=== PATIENT | female | born 1945 | race Caucasian/White ===

== ENCOUNTER 2018-03-09 15:37 | Inpatient (IN) | payer MEDICARE ==
[2018-03-08 20:00] VITALS: BP 121/57
[~2018-03-09] VITALS: Ht 167.6 cm; Wt 66.2 kg
[2018-03-09 16:00] VITALS: BP 107/67
[2018-03-09] MEDS ORDERED: Pantoprazole Inj IV ONE (16:15)
[2018-03-09 16:26] LABS: HEMATOCRIT 40.7 % (37.0-47.0); HEMOGLOBIN 14.3 G/DL (12.0-16.0); MEAN CORPUSCULAR VOLUME 86 FL (80-99); PLATELET COUNT 204 K/UL (150-450); RED BLOOD COUNT 4.76 M/UL (4.20-5.40); RED CELL DISTRIBUTION WIDTH 12.3 % (11.6-14.8); WHITE BLOOD COUNT 13.4 K/UL (4.8-10.8)
[2018-03-09] MEDS ORDERED: Isovue-300 100ml vial INJ PRN (16:30)
[2018-03-09 16:37] LABS: APPEARANCE,URINE CLEAR; BILIRUBIN, URINE NEGATIVE (NEGATIVE); COLOR,URINE PALE YELLOW; GLUCOSE, URINE (UA) NEGATIVE (NEGATIVE); KETONES,URINE 2+ (NEGATIVE); LEUKOCYTE ESTERASE ,URINE 3+ (NEGATIVE); NITRITE,URINE NEGATIVE (NEGATIVE); PH,URINE 7 (4.5-8.0); PROTEIN,URINE 1+ (NEGATIVE); UROBILINOGEN,URINE NORMAL MG/DL (0.0-1.0)
[2018-03-09 16:39] LABS: ANION GAP 3 mmol/L (5-15); BLOOD UREA NITROGEN 17 mg/dL (7-18); CALCIUM 8.9 MG/DL (8.5-10.1); CARBON DIOXIDE 27 MMOL/L (21-32); CHLORIDE 97 MMOL/L (98-107); CREATININE 0.7 MG/DL (0.55-1.30); POTASSIUM 3.6 MMOL/L (3.5-5.1); SODIUM 127 MMOL/L (136-145)
[2018-03-09 16:44] LABS: ALANINE AMINOTRANSFERASE 69 U/L (12-78); ALBUMIN/GLOBULIN RATIO 0.8 (1.0-2.7); ALKALINE PHOSPHATASE 80 U/L (46-116); ASPARTATE AMINO TRANSFERASE 30 U/L (15-37); BILIRUBIN,TOTAL 0.7 MG/DL (0.2-1.0)
[2018-03-09] MEDS ORDERED: Sodium Chloride 500ML 500 ML IV ONE (16:45)
[2018-03-09] MEDS ORDERED: Morphine Sulfate 4mg/ml Inj IVP ONE (17:00)
[2018-03-09] MEDS ORDERED: D5 1/2NS w/KCl 20mEq 1,000 ML IV SCH (17:15)
[2018-03-09] MEDS ORDERED: DECADRON2 MG ORAL ×2 (17:54)
--- NOTE | 2018-03-09 17:57 | Diagnostic Imaging Report ---
EXAM: CT Abdomen and Pelvis With Intravenous Contrast CLINICAL HISTORY: PAIN TECHNIQUE: Axial computed tomography images of the abdomen and pelvis with intravenous contrast. CTDI is 0.15 + 15.0 3 + 15.23 mGy and DLP is 1578 mGy-cm. One or more of the following dose reduction techniques were used: automated exposure control, adjustment of the mA and/or kV according to patient size, use of iterative reconstruction technique. COMPARISON: No relevant prior studies available. FINDINGS: Lung bases: Unremarkable. ABDOMEN: Liver: Mild fatty liver. Gallbladder and bile ducts: Cholelithiasis and pericholecystic fluid. Pancreas: No focal lesion. Peripancreatic edema Spleen: Unremarkable. Adrenals: Unremarkable. Kidneys and ureters: Possibly complex right renal cyst measuring 16 mm. Too small to characterize low attenuation focus in the left kidney. Stomach and bowel: No domenica mural thickening. Nonobstructive bowel gas pattern. PELVIS: Appendix: Appendix not identified. Bladder: Unremarkable. Reproductive: Hysterectomy. ABDOMEN and PELVIS: Intraperitoneal space: Trace amounts of fluid in the peritoneal cavity. Bones/joints: No acute fracture. Soft tissues: Edema in the upper abdomen. Vasculature: Unremarkable. No abdominal aortic aneurysm. Lymph nodes: No enlarged lymph nodes. IMPRESSION: 1. Edema in the upper abdomen. Could be from pancreatitis. Correlate with amylase or lipase values. 2. Cholelithiasis and pericholecystic fluid.
[2018-03-09] MEDS ORDERED: VITAMIN B COMP1 EAC5 PO (17:59)
[2018-03-09] MEDS ORDERED: VITAMIN C250 MG ORAL (17:59)
[2018-03-09] MEDS ORDERED: VITAMIN D1000 UNI1 ORAL (17:59)
[2018-03-09] MEDS ORDERED: MAGNESIUM OXID250 MG PO (17:59)
[2018-03-09] MEDS ORDERED: TURMERIC1 GM MC (17:59)
[2018-03-09] MEDS ORDERED: CRANBERRY200 M1 PO (17:59)
[2018-03-09 18:00] VITALS: BP 110/69
--- NOTE | 2018-03-09 18:01 | Emergency Room Report ---
History of Present Illness General Chief Complaint: Abdominal Pain Source: Patient Present Illness HPI Patient is a 72-year-old female who presented after increased the left upper abdominal pain. Patient reports having pain for approximately 2 days. She reported this having some worsening. She reports having prior history of gallstones. She denies any fever or vomiting. The patient prior history of small cell cancer. The patient was also noted to have a prior history of brain tumor. She takes dexamethasone 2 mg. The patient is currently scheduled to have evaluation at [facility] but has not previously been seen.The patient the neurosurgeon at [facility] is Dr. Fidel Miller. The patient's oncologist is Dr. Caraballo. Allergies: Coded Allergies: No Known Allergies (Unverified , 03/09/18) Patient History Past Medical History: see triage record Reviewed Nursing Documentation: PMH: Agreed; PSxH: Agreed Nursing Documentation-PMH Past Medical History: No History, Except For Hx Cancer: Yes - Brain, lung Review of Systems All Other Systems: negative except mentioned in HPI Physical Exam Vital Signs Date Time Temp Pulse Resp B/P (MAP) Pulse Ox O2 Delivery O2 Flow Rate FiO2 03/09/18 15:53 98.5 91 16 107/67 95 Room Air 98.4 Sp02 EP Interpretation: reviewed, normal General Appearance: normal inspection, well appearing, no apparent distress, alert, GCS 15, Chronically Ill Head: atraumatic ENT: normal ENT inspection, hearing grossly normal, normal voice Neck: normal inspection, full range of motion, supple, no bony tend Respiratory: normal inspection, lungs clear, normal breath sounds, no respiratory distress, no retraction, no wheezing Cardiovascular #1: regular rate, rhythm, no edema Gastrointestinal: non tender, soft, no guarding, no hernia, tenderness - left upper quadrant Genitourinary: no CVA tenderness Musculoskeletal: normal inspection, back normal, normal range of motion Neurologic: normal inspection, alert, responsive, speech normal, other - ataxic gait, oriented Psychiatric: normal inspection, judgement/insight normal, mood/affect normal Skin: normal inspection, normal color, no rash Medical Decision Making Diagnostic Impression: Primary Impression: Pancreatitis Additional Impressions: Brain tumor Small cell carcinoma of lung ER Course Patient presented for abdominal pain. Differential diagnoses included ischemic bowel, pancreatitis, obstruction , appendicitis, perforated viscus, abdominal aortic aneurysm, inferior myocardial infarction, viral gastroenteritis. Because of complexity of patient's case laboratory testing and imaging studies were ordered. The patient was discussed with Dr. Caraballo the who apparently had not seen the patient yet but had a scheduled appointment for Sunday. The laboratory study showed evidence of pancreatitis with lipase greater than 1700. The patient was given pain medications as well as IV acid blockers. The patient reportedly has prior brain tumor and I discussed the patient with the neurosurgical resident from [facility] states the patient has a 22 x 17 cm deep right parietal tumor. The patient was discussed with Dr. Caraballo from [facility] who recommended medical management at this facility. The patient was discussed with Dr. Lynch for surgical consult. The patient was discussed with Dr. Pimentel for Dr. Gonzales for panel physician. Labs Test 03/09/18 16:10 03/09/18 16:30 White Blood Count 13.4 K/UL (4.8-10.8) Red Blood Count 4.76 M/UL (4.20-5.40) Hemoglobin 14.3 G/DL (12.0-16.0) Hematocrit 40.7 % (37.0-47.0) Mean Corpuscular Volume 86 FL (80-99) Mean Corpuscular Hemoglobin 30.0 PG (27.0-31.0) Mean Corpuscular Hemoglobin Concent 35.0 G/DL (32.0-36.0) Red Cell Distribution Width 12.3 % (11.6-14.8) Platelet Count 204 K/UL (150-450) Mean Platelet Volume 6.1 FL (6.5-10.1) Neutrophils (%) (Auto) % (45.0-75.0) Lymphocytes (%) (Auto) % (20.0-45.0) Monocytes (%) (Auto) % (1.0-10.0) Eosinophils (%) (Auto) % (0.0-3.0) Basophils (%) (Auto) % (0.0-2.0) Differential Total Cells Counted 100 Neutrophils % (Manual) 81 % (45-75) Lymphocytes % (Manual) 9 % (20-45) Monocytes % (Manual) 7 % (1-10) Eosinophils % (Manual) 0 % (0-3) Basophils % (Manual) 0 % (0-2) Band Neutrophils 3 % (0-8) Platelet Estimate Adequate Platelet Morphology Normal Red Blood Cell Morphology Normal Prothrombin Time 10.7 SEC (9.30-11.50) Prothromb Time International Ratio 1.0 (0.9-1.1) Activated Partial Thromboplast Time 26 SEC (23-33) Sodium Level 127 MMOL/L (136-145) Potassium Level 3.6 MMOL/L (3.5-5.1) Chloride Level 97 MMOL/L (98-107) Carbon Dioxide Level 27 MMOL/L (21-32) Anion Gap 3 mmol/L (5-15) Blood Urea Nitrogen 17 mg/dL (7-18) Creatinine 0.7 MG/DL (0.55-1.30) Estimat Glomerular Filtration Rate mL/min (>60) Glucose Level 110 MG/DL (74-106) Calcium Level 8.9 MG/DL (8.5-10.1) Total Bilirubin 0.7 MG/DL (0.2-1.0) Aspartate Amino Transf (AST/SGOT) 30 U/L (15-37) Alanine Aminotransferase (ALT/SGPT) 69 U/L (12-78) Alkaline Phosphatase 80 U/L (46-116) Troponin I 0.000 ng/mL (0.000-0.056) Total Protein 6.7 G/DL (6.4-8.2) Albumin 3.0 G/DL (3.4-5.0) Globulin 3.7 g/dL Albumin/Globulin Ratio 0.8 (1.0-2.7) Lipase 1716 U/L (73-393) Urine Color Pale yellow Urine Appearance Clear Urine pH 7 (4.5-8.0) Urine Specific [place] 1.010 (1.005-1.035) Urine Protein 1+ (NEGATIVE) Urine Glucose (UA) Negative (NEGATIVE) Urine Ketones 2+ (NEGATIVE) Urine Occult Blood Negative (NEGATIVE) Urine Nitrite Negative (NEGATIVE) Urine Bilirubin Negative (NEGATIVE) Urine Urobilinogen Normal MG/DL (0.0-1.0) Urine Leukocyte Esterase 3+ (NEGATIVE) Urine RBC 0-2 /HPF (0 - 2) Urine WBC 5-10 /HPF (0 - 2) Urine Squamous Epithelial Cells Few /LPF (NONE/OCC) Urine Bacteria Few /HPF (NONE) EKG Diagnostic Results Rate: normal Rhythm: NSR ST Segments: no acute changes Last Vital Signs Date Time Temp Pulse Resp B/P (MAP) Pulse Ox O2 Delivery O2 Flow Rate FiO2 03/09/18 17:53 98.4 03/09/18 16:00 91 16 107/67 95 Room Air Status: unchanged Disposition: ADMITTED INPATIENT Condition: Serious Referrals: NOT CHOSEN IPA/,REFERRING (PCP) Sanju Olea MD Mar 09, 2018 18:01
[2018-03-09] MEDS: D5NS 1,000 ML IV SCH (22:09)
[2018-03-09] MEDS: Morphine Sulfate 4mg/ml Inj IVP PRN (22:29)
[2018-03-10] VITALS (7 sets, daily range): BP systolic 104–134; BP diastolic 53–67
[2018-03-10] MEDS ORDERED: Acetaminophen 650 MG SUPP RECTAL PRN (00:45)
[2018-03-10] MEDS: Morphine Sulfate 4mg/ml Inj IVP PRN ×3 (01:52→22:26)
[2018-03-10] MEDS: D5NS 1,000 ML IV SCH ×4 (04:32→21:00)
[2018-03-10 07:11] LABS: HEMOGLOBIN 12.9 G/DL (12.0-16.0); MEAN CORPUSCULAR VOLUME 89 FL (80-99); PLATELET COUNT 184 K/UL (150-450); RED BLOOD COUNT 4.41 M/UL (4.20-5.40); RED CELL DISTRIBUTION WIDTH 12.6 % (11.6-14.8); WHITE BLOOD COUNT 13.3 K/UL (4.8-10.8)
[2018-03-10 07:31] LABS: ALANINE AMINOTRANSFERASE 51 U/L (12-78); ALBUMIN 2.5 G/DL (3.4-5.0); ALBUMIN/GLOBULIN RATIO 0.7 (1.0-2.7); ALKALINE PHOSPHATASE 63 U/L (46-116); ANION GAP 3 mmol/L (5-15); ASPARTATE AMINO TRANSFERASE 23 U/L (15-37); BILIRUBIN,TOTAL 0.5 MG/DL (0.2-1.0); BLOOD UREA NITROGEN 11 mg/dL (7-18); CALCIUM 8.1 MG/DL (8.5-10.1); CARBON DIOXIDE 28 MMOL/L (21-32); CHLORIDE 102 MMOL/L (98-107); CREATININE 0.7 MG/DL (0.55-1.30); POTASSIUM 3.9 MMOL/L (3.5-5.1); SODIUM 133 MMOL/L (136-145)
[2018-03-10] MEDS: Morphine Sulfate 2mg/ml Inj IVP PRN (09:18)
--- NOTE | 2018-03-10 14:05 | Consultation ---
History of Present Illness General Date patient seen: Mar 10, 2018 Chief Complaint: Abdominal Pain Reason for Consultation: gallstone pancreatitis Present Illness HPI 72 year old female with history of brain tumor and lung cancer presented with abdominal pain, nausea, and emesis. As per patient, she was in her normal state of health until 3 days ago when she developed upper abdominal pain after breakfast. Pain described as cramping upper abdominal 10/10 pain with radiation to back. associated nausea and episodes of non blood emesis. As pain did not improve she came to ED for evaluation. After work up was noted to have pancreatitis likely secondary to cholelithiasis. Patient states she has brain tumor in past that was evaluated to [facility]. Has small cell cancer which is scheduled to be evaluated to [facility] as well. surgery called to evaluate for pancreatitis. patient seen, chart reviewed, patient examined. Allergies: Coded Allergies: No Known Allergies (Unverified , 03/09/18) Medication History Scheduled Ascorbic Acid* (Vitamin C*), 250 MG ORAL DAILY, (Reported) Cholecalciferol (Vitamin D3)* (Vitamin D*), Unknown Dose ORAL DAILY, (Reported) Cranberry Extract (Cranberry), Unknown Dose PO DAILY, (Reported) Dexamethasone (Dexamethasone), 2 MG ORAL BID, (Reported) Magnesium Oxide (Magnesium Oxide), Unknown Dose PO DAILY, (Reported) Turmeric (Turmeric), Unknown Dose MC DAILY, (Reported) Vitamin B Complex (Vitamin B Complex), 1 EACH PO DAILY, (Reported) Patient History History Provided By: Patient, Medical Record, PMD Healthcare decision maker FAHAD HOLT Resuscitation status Do Not Resuscitate Advanced Directive on File REQUESTED COPY FROM FAHAD HOLT, PATIENT Past Medical/Surgical History Past Medical/Surgical History: (1) Pancreatitis (2) Brain tumor (3) Small cell carcinoma of lung Review of Systems All Other Systems: negative except mentioned in HPI Physical Exam General Appearance: no apparent distress Lines, tubes and drains: peripheral HEENT: mucous membranes moist, PERRL Neck: normal inspection Respiratory/Chest: no respiratory distress, no accessory muscle use Cardiovascular/Chest: normal rate Abdomen: soft, no organomegaly, no mass, tender - epigastric region without acute abdomen Extremities: normal inspection Skin Exam: normal pigmentation Neurologic: washer meat II-XII grossly normal Last 24 Hour Vital Signs Date Time Temp Pulse Resp B/P (MAP) Pulse Ox O2 Delivery O2 Flow Rate FiO2 7/1/18 12:00 97.4 83 20 125/63 97 97.4 03/10/18 08:00 97.8 73 20 115/58 98 97.8 03/10/18 08:00 Room Air 03/10/18 04:00 99.0 80 19 104/59 94 Room Air 99.0 03/10/18 01:00 99.5 99.5 03/10/18 00:00 100.8 84 20 116/64 96 Room Air 100.8 03/09/18 22:29 98.0 03/09/18 19:23 98.0 86 16 110/69 95 Room Air 98.0 03/09/18 18:00 98.0 86 16 110/69 95 Room Air 98.0 03/09/18 17:53 98.4 03/09/18 17:07 98.4 03/09/18 16:00 98.4 91 16 107/67 95 Room Air 98.4 03/09/18 15:53 98.5 91 16 107/67 95 Room Air 98.4 Intake and Output 03/09/18 03/10/18 19:00 07:00 Intake Total 500 ml 1200 ml Output Total 90 ml Balance 410 ml 1200 ml Intake IV Total 500 ml 1200 ml Output Urine Total 90 ml # Voids 1 3 # Bowel Movements 28 Laboratory Tests Test 03/09/18 16:10 03/09/18 16:30 03/10/18 05:00 White Blood Count 13.4 K/UL (4.8-10.8) H 13.3 K/UL (4.8-10.8) H Red Blood Count 4.76 M/UL (4.20-5.40) 4.41 M/UL (4.20-5.40) Hemoglobin 14.3 G/DL (12.0-16.0) 12.9 G/DL (12.0-16.0) Hematocrit 40.7 % (37.0-47.0) 39.0 % (37.0-47.0) Mean Corpuscular Volume 86 FL (80-99) 89 FL (80-99) Mean Corpuscular Hemoglobin 30.0 PG (27.0-31.0) 29.2 PG (27.0-31.0) Mean Corpuscular Hemoglobin Concent 35.0 G/DL (32.0-36.0) 33.0 G/DL (32.0-36.0) Red Cell Distribution Width 12.3 % (11.6-14.8) 12.6 % (11.6-14.8) Platelet Count 204 K/UL (150-450) 184 K/UL (150-450) Mean Platelet Volume 6.1 FL (6.5-10.1) L 5.4 FL (6.5-10.1) L Neutrophils (%) (Auto) % (45.0-75.0) % (45.0-75.0) Lymphocytes (%) (Auto) % (20.0-45.0) % (20.0-45.0) Monocytes (%) (Auto) % (1.0-10.0) % (1.0-10.0) Eosinophils (%) (Auto) % (0.0-3.0) % (0.0-3.0) Basophils (%) (Auto) % (0.0-2.0) % (0.0-2.0) Differential Total Cells Counted 100 100 Neutrophils % (Manual) 81 % (45-75) H 85 % (45-75) H Lymphocytes % (Manual) 9 % (20-45) L 10 % (20-45) L Monocytes % (Manual) 7 % (1-10) 5 % (1-10) Eosinophils % (Manual) 0 % (0-3) 0 % (0-3) Basophils % (Manual) 0 % (0-2) 0 % (0-2) Band Neutrophils 3 % (0-8) 0 % (0-8) Platelet Estimate Adequate Adequate Platelet Morphology Normal Normal Red Blood Cell Morphology Normal Normal Prothrombin Time 10.7 SEC (9.30-11.50) Prothromb Time International Ratio 1.0 (0.9-1.1) Activated Partial Thromboplast Time 26 SEC (23-33) Sodium Level 127 MMOL/L (136-145) L 133 MMOL/L (136-145) L Potassium Level 3.6 MMOL/L (3.5-5.1) 3.9 MMOL/L (3.5-5.1) Chloride Level 97 MMOL/L (98-107) L 102 MMOL/L (98-107) Carbon Dioxide Level 27 MMOL/L (21-32) 28 MMOL/L (21-32) Anion Gap 3 mmol/L (5-15) L 3 mmol/L (5-15) L Blood Urea Nitrogen 17 mg/dL (7-18) 11 mg/dL (7-18) Creatinine 0.7 MG/DL (0.55-1.30) 0.7 MG/DL (0.55-1.30) Estimat Glomerular Filtration Rate mL/min (>60) mL/min (>60) Glucose Level 110 MG/DL (74-106) H 128 MG/DL (74-106) H Calcium Level 8.9 MG/DL (8.5-10.1) 8.1 MG/DL (8.5-10.1) L Total Bilirubin 0.7 MG/DL (0.2-1.0) 0.5 MG/DL (0.2-1.0) Aspartate Amino Transf (AST/SGOT) 30 U/L (15-37) 23 U/L (15-37) Alanine Aminotransferase (ALT/SGPT) 69 U/L (12-78) 51 U/L (12-78) Alkaline Phosphatase 80 U/L (46-116) 63 U/L (46-116) Troponin I 0.000 ng/mL (0.000-0.056) Total Protein 6.7 G/DL (6.4-8.2) 5.9 G/DL (6.4-8.2) L Albumin 3.0 G/DL (3.4-5.0) L 2.5 G/DL (3.4-5.0) L Globulin 3.7 g/dL 3.4 g/dL Albumin/Globulin Ratio 0.8 (1.0-2.7) L 0.7 (1.0-2.7) L Lipase 1716 U/L (73-393) H Urine Color Pale yellow Urine Appearance Clear Urine pH 7 (4.5-8.0) Urine Specific [place] 1.010 (1.005-1.035) Urine Protein 1+ (NEGATIVE) H Urine Glucose (UA) Negative (NEGATIVE) Urine Ketones 2+ (NEGATIVE) H Urine Occult Blood Negative (NEGATIVE) Urine Nitrite Negative (NEGATIVE) Urine Bilirubin Negative (NEGATIVE) Urine Urobilinogen Normal MG/DL (0.0-1.0) Urine Leukocyte Esterase 3+ (NEGATIVE) H Urine RBC 0-2 /HPF (0 - 2) Urine WBC 5-10 /HPF (0 - 2) H Urine Squamous Epithelial Cells Few /LPF (NONE/OCC) Urine Bacteria Few /HPF (NONE) Height (Feet): 5 Height (Inches): 6.00 Weight (Pounds): 146 Medications Current Medications Medications (Trade) Dose Ordered Sig/Gilma Route PRN Reason Start Time Stop Time Status Last Admin Dose Admin Acetaminophen (Tylenol) 650 mg Q4H PRN RECTAL TEMPERATURE GREATER THAN 100 03/10/18 00:45 04/09/18 00:44 Dextrose/Sodium Chloride 1,000 ml @ 150 mls/hr Q6H40M IV 03/09/18 21:30 04/08/18 21:29 03/10/18 12:19 Iopamidol (Isovue-300 100ml) 100 ml NOW PRN INJ Radiology Procedure 03/09/18 16:30 Morphine Sulfate (Morphine Sulfate) 2 mg Q3H PRN IVP moderate pain 03/09/18 21:13 03/16/18 21:12 03/10/18 09:18 Morphine Sulfate (Morphine Sulfate) 4 mg Q3H PRN IVP Severe Pain (Pain Scale 7-10) 03/09/18 21:13 03/16/18 21:12 03/10/18 13:26 Ondansetron HCl (Zofran) 4 mg Q4H PRN IVP Nausea & Vomiting 03/09/18 21:12 04/08/18 21:11 Assessment/Plan Problem List: (1) Pancreatitis Assessment & Plan: 72F with likely gallstone pancreatitis. afebrile, HD stable , leukocytosis 13k, lipase >1000. exam as above. Ct as noted. -NPO -IV fluids -trend labs -conservative medical management of pancreatitis. -lipid panel -meds reviewed -patient states she wants transfer to [facility] soon. thank you for this consultation. will follow with recs. ICD Codes: K85.90 - Acute pancreatitis without necrosis or infection, unspecified SNOMED: [id number] Qualifiers: Qualified Codes: K85.10 - Biliary acute pancreatitis without necrosis or infection Status: stable CrisLeonidas Mar 10, 2018 14:05
[2018-03-10] MEDS ORDERED: D5NS 1000ml IV ONE (16:34)
--- NOTE | 2018-03-10 17:42 | Cardiology Report ---
APPROVED REPORT EKG Measurement Heart [id number] Normal sinus rhythm Biatrial enlargement Early repolarization Nonspecific ST abnormality Abnormal ECG
--- NOTE | 2018-03-10 21:15 | Consultation ---
DATE OF CONSULTATION: 03/10/2018 HEMATOLOGY/ONCOLOGY CONSULTATION CONSULTING PHYSICIAN: Hawk Justice M.D. REQUESTING PHYSICIAN: Darren Varela M.D. and Eligio Palma M.D. REASON FOR CONSULTATION: Evaluation of lung cancer. IDENTIFICATION DATA: Dear Dr. Varela and Dr. Palma. The patient is a pleasant 72-year-old female with past medical history, which is significant for lung cancer diagnosed approximately four years ago. The patient had treatment with chemotherapy as well as radiation at that time. She was actually on hospice and therefore graduated gradually from hospice. She at this time presents with recurrence of lung cancer, stage IV to the brain. She reports pain for the past several days. She reports the pain has been worsening. She has a history of prior gallstones. Denies any fevers or chills. History of prior small cell lung cancer. Neurosurgeon is Dr. Fidel Miller. Oncologist is Dr. Caraballo. The patient at this time to be started on treatment in the near future. PAST MEDICAL HISTORY: Lung cancer, stage IV. PAST SURGICAL HISTORY: None reported. ALLERGIES: No known drug allergies. FAMILY HISTORY: Noncontributory. REVIEW OF SYSTEMS: CONSTITUTIONAL: No fevers, chills, or night sweats. SKIN: No rashes, bumps, or itching. HEENT: No headache, hearing, or vision changes. BREASTS: No lumps, pain, or discharge. PULMONARY: No cough, sputum, or shortness of breath. GASTROINTESTINAL: No nausea, vomiting, or diarrhea. GENITOURINARY: No dysuria, frequency, or urgency. MUSCULOSKELETAL: No muscle, joint swelling, or trauma. PHYSICAL EXAMINATION: VITAL SIGNS: Reviewed. GENERAL: No acute distress. PULMONARY: Decreased breath sounds. CARDIOVASCULAR: Regular rate. No S3 or S4. ABDOMEN: Soft, nontender, and nondistended. EXTREMITIES: 1+ edema. LABORATORY DATA: WBC 13.3, hemoglobin of 12.9, and platelet count 184,000. ASSESSMENT AND RECOMMENDATIONS: 1. Stage IV lung cancer with history of recurrence, status post treatment. The patient with adenocarcinoma and small cell lung cancer. The patient to be started on stereotactic radiation in addition to potential treatment in addition to potential chemotherapy. The patient has had carboplatin before. Continue to monitor at [facility]. 2. Leukocytosis secondary to severe infection or reactive process. The patient wants to be transferred to [facility] at this time. The patient with fever. Cultures pending. 3. Hypocalcemia, likely secondary to dehydration. Correct the patient's albumin. 4. Hypoalbuminemia, potentially secondary to decreased p.o. intake. 5. Left upper abdominal pain, potentially related to . The patient may need surgical consult. The patient with lipase greater than 1700, potentially pancreatitis, on IV pain medications. 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 7. Follow up at [facility] with neurosurgeon. I appreciate consultation. Hawk Justice M.D. DR: Paty JOB#: [id number] CC:
[2018-03-11 04:00] VITALS: BP 138/68
[2018-03-11] MEDS: D5NS 1,000 ML IV SCH ×3 (04:06→22:03)
[2018-03-11] MEDS: Morphine Sulfate 4mg/ml Inj IVP PRN ×3 (04:06→22:03)
--- NOTE | 2018-03-11 05:15 | History and Physical Report ---
DATE OF ADMISSION: 03/10/2018 CHIEF COMPLAINT: Abdominal pain. HISTORY OF PRESENT ILLNESS: This is a 72-year-old female with a past medical history of pancreatitis, brain tumor, and small cell carcinoma of the lung, who presents from home due to increasing left upper abdominal pain. The patient reports having the pain for approximately two days, which has started to worsen. She states she had nausea without any vomiting or fevers. She does have a history of prior gallstones as well. The patient presented to the emergency department for further evaluation and treatment. Upon arrival, the patient had a CT done, which showed edema in the upper abdomen, pancreatitis possible, but based on the patient's brain tumor in the past as well as small cell cancer, which was , the patient would like to transfer back to [facility]. The patient was seen by Surgery, who wanted to continue the patient on NPO, continue IV fluids, trend laboratories, conservative medical management of pancreatitis, and pain management until the patient can be transferred. The patient was seen and examined, resting comfortably, in no acute distress. Abdominal pain is improving. Diet was changed from NPO status to soft, advance as tolerated. She will be transferred to [facility] tomorrow. Until then, we will continue to monitor the patient and adjust medications according to clinical conditions and laboratory results. PAST MEDICAL HISTORY: Pancreatitis, brain tumor, and small cell carcinoma of the lung. ALLERGIES: No known drug allergies. SOCIAL HISTORY: Denies any drug, tobacco, or illicit drug abuse. REVIEW OF SYSTEMS: Negative except for pertinent positives listed above in the history of present illness. PHYSICAL EXAMINATION: GENERAL: Awake, alert, and in no apparent distress. HEENT: PERRLA. CARDIOVASCULAR: S1 and S2. Regular rate and rhythm. RESPIRATORY: Clear breath sounds bilaterally. No wheezing, rhonchi, or rales. ABDOMEN: Soft. Tender to deep palpation. EXTREMITIES: Lower extremities, no edema noted. IMPRESSION AND PLAN: 1. Pancreatitis. 2. Small cell carcinoma. 3. Brain tumor. PLAN: Continue intravenous fluids. Continue soft diet as tolerated. Continue to trend laboratories. Continue pain management. Surgery consulted. Appreciate recommendations. The patient will be transferred to [facility] tomorrow. Faraaz Danny, MD DR: LISA JOB#: [id number] CC:
[2018-03-11 07:56] LABS: HEMATOCRIT 38.3 % (37.0-47.0); HEMOGLOBIN 12.9 G/DL (12.0-16.0); MEAN CORPUSCULAR VOLUME 89 FL (80-99); PLATELET COUNT 173 K/UL (150-450); RED BLOOD COUNT 4.32 M/UL (4.20-5.40); RED CELL DISTRIBUTION WIDTH 12.5 % (11.6-14.8); WHITE BLOOD COUNT 12.4 K/UL (4.8-10.8)
[2018-03-11 08:00] VITALS: BP 143/58
[2018-03-11 08:21] LABS: CHOLESTEROL 160 MG/DL (< 200); HDL CHOLESTEROL 82 MG/DL (40-60); TRIGLYCERIDES 80 MG/DL (30-150)
[2018-03-11 08:22] LABS: ALANINE AMINOTRANSFERASE 40 U/L (12-78); ALBUMIN 2.3 G/DL (3.4-5.0); ALBUMIN/GLOBULIN RATIO 0.6 (1.0-2.7); ALKALINE PHOSPHATASE 71 U/L (46-116); ANION GAP 5 mmol/L (5-15); ASPARTATE AMINO TRANSFERASE 18 U/L (15-37); BILIRUBIN,TOTAL 0.4 MG/DL (0.2-1.0); BLOOD UREA NITROGEN 7 mg/dL (7-18); CALCIUM 8.3 MG/DL (8.5-10.1); CARBON DIOXIDE 28 MMOL/L (21-32); CHLORIDE 103 MMOL/L (98-107); CREATININE 0.7 MG/DL (0.55-1.30); POTASSIUM 3.3 MMOL/L (3.5-5.1); SODIUM 136 MMOL/L (136-145)
[2018-03-11] MEDS ORDERED: ACETAMINOPHEN325 M1 RECTAL (11:20)
[2018-03-11] MEDS: Pantoprazole Inj IVP SCH (11:20)
[2018-03-11] MEDS ORDERED: [UNRECOGNIZED DRUG - OTHER] IV (11:25)
[2018-03-11] MEDS ORDERED: [UNRECOGNIZED DRUG - CODE] IV (11:28)
[2018-03-11] MEDS: Morphine Sulfate 2mg/ml Inj IVP PRN ×2 (11:28→18:30)
[2018-03-11] MEDS ORDERED: MORPHINE 22 MG/1 ML IV (11:29)
[2018-03-11] MEDS ORDERED: MORPHINE SU4 MG/1 ML IVPB (11:35)
[2018-03-11] MEDS ORDERED: PROTONIX40 M1 IVP (11:36)
--- NOTE | 2018-03-11 11:48 | General Progress Note ---
Assessment/Plan Status: not improved, unchanged Assessment/Plan 1. Stage IV lung cancer with history of recurrence, status post treatment. The patient with adenocarcinoma and small cell lung cancer. --> patient to be started on stereotactic radiation in addition to potential treatment in addition to potential chemotherapy. The patient has had carboplatin before. Continue to monitor at [facility]. -->. Follow up at [facility] with neurosurgeon. f/u with chemo as well 2. Leukocytosis secondary to severe infection or reactive process. --> fever resolved --> Cultures pending. --> wbc remains elevated 3. Hypocalcemia, likely secondary to dec in po intake, dec albim --> corrects with patients albumin --> monitor in case requires repletion 4. Hypoalbuminemia, potentially secondary to decreased p.o. intake. --> Correct the patient's albumin. 5. Left upper abdominal pain, The patient may need surgical consult. --> The patient with lipase greater than 1700, potentially pancreatitis --> on IV pain medications. 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 -->. Follow up at [facility] with neurosurgeon. Subjective Date patient seen: Mar 11, 2018 ROS Limited/Unobtainable: Yes Allergies: Coded Allergies: No Known Allergies (Unverified , 03/09/18) All Systems: reviewed and negative except above Subjective No acute events. Pt c/o acid reflux. Transfer to [facility] scheduled for tomorrow. Objective Last 24 Hour Vital Signs Date Time Temp Pulse Resp B/P (MAP) Pulse Ox O2 Delivery O2 Flow Rate FiO2 03/11/18 11:28 97.4 03/11/18 08:00 97.4 94 20 143/58 97 Room Air 97.4 03/11/18 04:36 98.7 03/11/18 04:00 98.4 89 18 138/68 95 Room Air 98.4 03/10/18 23:57 98.7 87 19 134/67 97 Room Air 98.7 03/10/18 20:00 98.8 87 16 119/67 97 Room Air 98.8 03/10/18 15:53 97.9 76 20 116/53 98 Room Air 97.9 03/10/18 12:00 97.4 83 20 125/63 97 97.4 Intake and Output 03/10/18 03/11/18 19:00 07:00 Intake Total 1770 ml 1950 ml Balance 1770 ml 1950 ml Intake Oral 120 ml 300 ml IV Total 1650 ml 1650 ml # Voids 2 3 Laboratory Tests 03/11/18 06:54: White Blood Count 12.4H, Red Blood Count 4.32, Hemoglobin 12.9, Hematocrit 38.3 , Mean Corpuscular Volume 89, Mean Corpuscular Hemoglobin 29.9, Mean Corpuscular Hemoglobin Concent 33.8, Red Cell Distribution Width 12.5, Platelet Count 173, Mean Platelet Volume 5.4L, Neutrophils (%) (Auto) , Lymphocytes (%) ( Auto) , Monocytes (%) (Auto) , Eosinophils (%) (Auto) , Basophils (%) (Auto) , Differential Total Cells Counted 100, Neutrophils % (Manual) 87H, Lymphocytes % (Manual) 8L, Monocytes % (Manual) 3, Eosinophils % (Manual) 1, Basophils % ( Manual) 0, Band Neutrophils 1, Platelet Estimate Adequate, Platelet Morphology Normal, Red Blood Cell Morphology Normal, Sodium Level 136, Potassium Level 3.3L , Chloride Level 103, Carbon Dioxide Level 28, Anion Gap 5, Blood Urea Nitrogen 7, Creatinine 0.7, Estimat Glomerular Filtration Rate , Glucose Level 141H, Calcium Level 8.3L, Total Bilirubin 0.4, Aspartate Amino Transf (AST/SGOT) 18, Alanine Aminotransferase (ALT/SGPT) 40, Alkaline Phosphatase 71, Total Protein 5.9L, Albumin 2.3L, Globulin 3.6, Albumin/Globulin Ratio 0.6L, Triglycerides Level 80, Cholesterol Level 160, LDL Cholesterol 72, HDL Cholesterol 82H, Cholesterol/HDL Ratio 2.0L, Lipase 115 Height (Feet): 5 Height (Inches): 6.00 Weight (Pounds): 146 General Appearance: no apparent distress, alert EENT: PERRL/EOMI Neck: normal alignment Cardiovascular: normal peripheral pulses Respiratory/Chest: no respiratory distress Abdomen: normal bowel sounds Hawk Justice MD Mar 11, 2018 11:48
[2018-03-11 12:00] VITALS: BP 134/75
--- NOTE | 2018-03-11 12:09 | General Surgery Progress Note ---
General Surgery-Progress Note Subjective Symptoms: tolerating diet, passing flatus Additional Comments still having epigastric discomfort with radiation to back. no n/v/f/c. labs improved. Objective Last 24 Hour Vital Signs Date Time Temp Pulse Resp B/P (MAP) Pulse Ox O2 Delivery O2 Flow Rate FiO2 03/11/18 11:28 97.4 03/11/18 08:00 97.4 94 20 143/58 97 Room Air 97.4 03/11/18 04:36 98.7 03/11/18 04:00 98.4 89 18 138/68 95 Room Air 98.4 03/10/18 23:57 98.7 87 19 134/67 97 Room Air 98.7 03/10/18 20:00 98.8 87 16 119/67 97 Room Air 98.8 03/10/18 15:53 97.9 76 20 116/53 98 Room Air 97.9 I&O Intake and Output 03/10/18 03/11/18 19:00 07:00 Intake Total 1770 ml 1950 ml Balance 1770 ml 1950 ml Intake Oral 120 ml 300 ml IV Total 1650 ml 1650 ml # Voids 2 3 Drains: none Cardiovascular: RSR Respiratory: clear Abdomen: soft, tenderness, present bowel sounds Extremities: no cyanosis Laboratory Tests Test 03/11/18 06:54 White Blood Count 12.4 K/UL (4.8-10.8) H Red Blood Count 4.32 M/UL (4.20-5.40) Hemoglobin 12.9 G/DL (12.0-16.0) Hematocrit 38.3 % (37.0-47.0) Mean Corpuscular Volume 89 FL (80-99) Mean Corpuscular Hemoglobin 29.9 PG (27.0-31.0) Mean Corpuscular Hemoglobin Concent 33.8 G/DL (32.0-36.0) Red Cell Distribution Width 12.5 % (11.6-14.8) Platelet Count 173 K/UL (150-450) Mean Platelet Volume 5.4 FL (6.5-10.1) L Neutrophils (%) (Auto) % (45.0-75.0) Lymphocytes (%) (Auto) % (20.0-45.0) Monocytes (%) (Auto) % (1.0-10.0) Eosinophils (%) (Auto) % (0.0-3.0) Basophils (%) (Auto) % (0.0-2.0) Differential Total Cells Counted 100 Neutrophils % (Manual) 87 % (45-75) H Lymphocytes % (Manual) 8 % (20-45) L Monocytes % (Manual) 3 % (1-10) Eosinophils % (Manual) 1 % (0-3) Basophils % (Manual) 0 % (0-2) Band Neutrophils 1 % (0-8) Platelet Estimate Adequate Platelet Morphology Normal Red Blood Cell Morphology Normal Sodium Level 136 MMOL/L (136-145) Potassium Level 3.3 MMOL/L (3.5-5.1) L Chloride Level 103 MMOL/L (98-107) Carbon Dioxide Level 28 MMOL/L (21-32) Anion Gap 5 mmol/L (5-15) Blood Urea Nitrogen 7 mg/dL (7-18) Creatinine 0.7 MG/DL (0.55-1.30) Estimat Glomerular Filtration Rate mL/min (>60) Glucose Level 141 MG/DL (74-106) H Calcium Level 8.3 MG/DL (8.5-10.1) L Total Bilirubin 0.4 MG/DL (0.2-1.0) Aspartate Amino Transf (AST/SGOT) 18 U/L (15-37) Alanine Aminotransferase (ALT/SGPT) 40 U/L (12-78) Alkaline Phosphatase 71 U/L (46-116) Total Protein 5.9 G/DL (6.4-8.2) L Albumin 2.3 G/DL (3.4-5.0) L Globulin 3.6 g/dL Albumin/Globulin Ratio 0.6 (1.0-2.7) L Triglycerides Level 80 MG/DL (30-150) Cholesterol Level 160 MG/DL (< 200) LDL Cholesterol 72 mg/dL (<100) HDL Cholesterol 82 MG/DL (40-60) H Cholesterol/HDL Ratio 2.0 (3.3-4.4) L Lipase 115 U/L (73-393) Plan Problems: (1) Pancreatitis Assessment & Plan: 72F with likely gallstone pancreatitis. afebrile, HD stable , leukocytosis 13k, lipase >1000. exam as above. Ct as noted. today still with epigastric radiating to back discomfort. no n/v/f/c. leukocytosis mildly improved. lipase normal. lfts okay. lipids okay. -diet as tolerated -trend labs -conservative medical management of pancreatitis. -recommend cholecystectomy given episode of gallstone pancreatitis. patient with brain tumor and lung cancer. would like to discuss with her other MD's first. states she will pursue as outpatient. -patient states she wants transfer to [facility] soon. thank you for this consultation. will follow with orly. Leonidas Lynch Mar 11, 2018 12:09
[2018-03-11 16:00] VITALS: BP 145/71
--- NOTE | 2018-03-11 17:25 | Consultation ---
History of Present Illness General Date patient seen: Mar 11, 2018 Chief Complaint: Abdominal Pain Reason for Consultation: gallstone pancreatitis Present Illness HPI 72-year-old female with a past medical history of anxiety ,pancreatitis, brain tumor, and small cell carcinoma of the lung, who presents from home due to increasing left upper abdominal pain. The pt has anxiety and insomnia. the pt stated that the pain make her sxs worse. She denied depressive sxs and stated that she was not suicidal. She was adamant against taking medications. Allergies: Coded Allergies: No Known Allergies (Unverified , 03/09/18) Medication History Scheduled Ascorbic Acid* (Vitamin C*), 250 MG ORAL DAILY, (Reported) Cholecalciferol (Vitamin D3)* (Vitamin D*), Unknown Dose ORAL DAILY, (Reported) Cranberry Extract (Cranberry), Unknown Dose PO DAILY, (Reported) Dexamethasone (Dexamethasone), 2 MG ORAL BID, (Reported) Magnesium Oxide (Magnesium Oxide), Unknown Dose PO DAILY, (Reported) Pantoprazole* (Protonix*), 40 MG IVP DAILY, (Reported) Turmeric (Turmeric), Unknown Dose MC DAILY, (Reported) Vitamin B Complex (Vitamin B Complex), 1 EACH PO DAILY, (Reported) Scheduled PRN Acetaminophen* (Acetaminophen 325MG Tablet*), 650 MG RECTAL Q4HR PRN for Fever/ Headache/Mild Pain, (Reported) Iopamidol (Isovue-300), 100 ML IV for Radiology Procedure, (Reported) Morphine Sulfate (Morphine Sulfate), 4 MG IVPB Q3HR PRN for Severe Pain (Pain Scale 7-10), (Reported) Morphine Sulfate* (Morphine Sulfate*), 2 MG IV Q3HR PRN for Moderate Pain (Pain Scale 4-6), (Reported) Miscellaneous Medications Dextrose/Sod Chloride (Dextrose 5%-0.9% NaCl IV Soln), 1,000 ML IV, (Reported) Patient History Limited by: medical condition History Provided By: Patient, Medical Record, PMD Healthcare decision maker FAHAD HOLT Resuscitation status Do Not Resuscitate Advanced Directive on File No Past Medical/Surgical History Past Medical/Surgical History: (1) Brain tumor (2) Small cell carcinoma of lung (3) Pancreatitis Review of Systems Psychiatric: Reports: prior hx, anxiety, depressed feelings, emotional problems Physical Exam General Appearance: no apparent distress, alert Neurologic: oriented x 3, responsive, depressed affect Last 24 Hour Vital Signs Date Time Temp Pulse Resp B/P (MAP) Pulse Ox O2 Delivery O2 Flow Rate FiO2 03/11/18 16:00 97.8 89 19 145/71 97 Room Air 97.8 03/11/18 15:32 97.7 03/11/18 15:02 97.7 03/11/18 12:00 97.7 85 20 134/75 98 97.7 03/11/18 11:58 97.7 03/11/18 11:28 97.4 03/11/18 08:00 97.4 94 20 143/58 97 Room Air 97.4 03/11/18 04:00 98.4 89 18 138/68 95 Room Air 98.4 03/10/18 23:57 98.7 87 19 134/67 97 Room Air 98.7 03/10/18 20:00 98.8 87 16 119/67 97 Room Air 98.8 Intake and Output 03/10/18 03/11/18 19:00 07:00 Intake Total 1770 ml 1950 ml Balance 1770 ml 1950 ml Intake Oral 120 ml 300 ml IV Total 1650 ml 1650 ml # Voids 2 3 Laboratory Tests Test 03/11/18 06:54 White Blood Count 12.4 K/UL (4.8-10.8) H Red Blood Count 4.32 M/UL (4.20-5.40) Hemoglobin 12.9 G/DL (12.0-16.0) Hematocrit 38.3 % (37.0-47.0) Mean Corpuscular Volume 89 FL (80-99) Mean Corpuscular Hemoglobin 29.9 PG (27.0-31.0) Mean Corpuscular Hemoglobin Concent 33.8 G/DL (32.0-36.0) Red Cell Distribution Width 12.5 % (11.6-14.8) Platelet Count 173 K/UL (150-450) Mean Platelet Volume 5.4 FL (6.5-10.1) L Neutrophils (%) (Auto) % (45.0-75.0) Lymphocytes (%) (Auto) % (20.0-45.0) Monocytes (%) (Auto) % (1.0-10.0) Eosinophils (%) (Auto) % (0.0-3.0) Basophils (%) (Auto) % (0.0-2.0) Differential Total Cells Counted 100 Neutrophils % (Manual) 87 % (45-75) H Lymphocytes % (Manual) 8 % (20-45) L Monocytes % (Manual) 3 % (1-10) Eosinophils % (Manual) 1 % (0-3) Basophils % (Manual) 0 % (0-2) Band Neutrophils 1 % (0-8) Platelet Estimate Adequate Platelet Morphology Normal Red Blood Cell Morphology Normal Sodium Level 136 MMOL/L (136-145) Potassium Level 3.3 MMOL/L (3.5-5.1) L Chloride Level 103 MMOL/L (98-107) Carbon Dioxide Level 28 MMOL/L (21-32) Anion Gap 5 mmol/L (5-15) Blood Urea Nitrogen 7 mg/dL (7-18) Creatinine 0.7 MG/DL (0.55-1.30) Estimat Glomerular Filtration Rate mL/min (>60) Glucose Level 141 MG/DL (74-106) H Calcium Level 8.3 MG/DL (8.5-10.1) L Total Bilirubin 0.4 MG/DL (0.2-1.0) Aspartate Amino Transf (AST/SGOT) 18 U/L (15-37) Alanine Aminotransferase (ALT/SGPT) 40 U/L (12-78) Alkaline Phosphatase 71 U/L (46-116) Total Protein 5.9 G/DL (6.4-8.2) L Albumin 2.3 G/DL (3.4-5.0) L Globulin 3.6 g/dL Albumin/Globulin Ratio 0.6 (1.0-2.7) L Triglycerides Level 80 MG/DL (30-150) Cholesterol Level 160 MG/DL (< 200) LDL Cholesterol 72 mg/dL (<100) HDL Cholesterol 82 MG/DL (40-60) H Cholesterol/HDL Ratio 2.0 (3.3-4.4) L Lipase 115 U/L (73-393) Height (Feet): 5 Height (Inches): 6.00 Weight (Pounds): 146 Medications Current Medications Medications (Trade) Dose Ordered Sig/Gilma Route PRN Reason Start Time Stop Time Status Last Admin Dose Admin Acetaminophen (Tylenol) 650 mg Q4H PRN RECTAL TEMPERATURE GREATER THAN 100 03/10/18 00:45 04/09/18 00:44 Dextrose/Sodium Chloride 1,000 ml @ 150 mls/hr Q6H40M IV 03/09/18 21:30 04/08/18 21:29 03/11/18 13:39 Iopamidol (Isovue-300 100ml) 100 ml NOW PRN INJ Radiology Procedure 03/09/18 16:30 Morphine Sulfate (Morphine Sulfate) 2 mg Q3H PRN IVP moderate pain 03/09/18 21:13 03/16/18 21:12 03/11/18 11:28 Morphine Sulfate (Morphine Sulfate) 4 mg Q3H PRN IVP Severe Pain (Pain Scale 7-10) 03/09/18 21:13 03/16/18 21:12 03/11/18 15:02 Ondansetron HCl (Zofran) 4 mg Q4H PRN IVP Nausea & Vomiting 03/09/18 21:12 04/08/18 21:11 Pantoprazole (Protonix) 40 mg DAILY IVP 03/11/18 10:30 04/10/18 10:29 03/11/18 11:20 Assessment/Plan Status: stable Assessment/Plan Anxiety d/o insomnia the pt is adamant to take medications agreed to have as needed meds available to her Restoril Abbie Kumar MD Mar 11, 2018 17:25
--- NOTE | 2018-03-11 17:59 | General Progress Note ---
Assessment/Plan Problem List: (1) Brain tumor ICD Codes: D49.6 - Neoplasm of unspecified behavior of brain SNOMED: 374028540 (2) Small cell carcinoma of lung ICD Codes: C34.90 - Malignant neoplasm of unspecified part of unspecified bronchus or lung SNOMED: 124150677 (3) Pancreatitis ICD Codes: K85.90 - Acute pancreatitis without necrosis or infection, unspecified SNOMED: 35529046 Qualifiers: Qualified Codes: K85.10 - Biliary acute pancreatitis without necrosis or infection Status: stable, progressing Assessment/Plan - general surgery consulted, appreciate rec's - IVF - CLD and advance diet as tolerated - transfer to [facility] tomorrow - pain control and supportive care DVT Prophylaxis: SCD, HSQ Code Status: Full Hospital Classification Declaration: Based on this initial evaluation, and depending on the patient's clinical course, I anticipate that this patient will require hospitalization for 2-3 days for pancreatitis and close respiratory/ hemodynamic monitoring. Disposition: Once the patient is stable to leave the hospital, I anticipate the patient will likely be discharged to the following environment: home with HH vs SNF I spent 32 minutes on this patient's case, and 19 minutes were dedicated to counseling and/or care coordination. Discussed with patient/family, nursing staff, SW/CM, general surgery regarding clinical status, treatment course, and disposition planning. Time of note may not reflect time of encounter. Subjective Date patient seen: Mar 11, 2018 Time patient seen: 17:59 Allergies: Coded Allergies: No Known Allergies (Unverified , 03/09/18) Subjective - AF, HDS - doing better today. tolerating CLD, no nausea/vomiting - continues to c/o abdominal pain Objective Last 24 Hour Vital Signs Date Time Temp Pulse Resp B/P (MAP) Pulse Ox O2 Delivery O2 Flow Rate FiO2 03/11/18 16:00 97.8 89 19 145/71 97 Room Air 97.8 03/11/18 15:32 97.7 03/11/18 15:02 97.7 03/11/18 12:00 97.7 85 20 134/75 98 97.7 03/11/18 11:58 97.7 03/11/18 11:28 97.4 03/11/18 08:00 97.4 94 20 143/58 97 Room Air 97.4 03/11/18 04:00 98.4 89 18 138/68 95 Room Air 98.4 03/10/18 23:57 98.7 87 19 134/67 97 Room Air 98.7 03/10/18 20:00 98.8 87 16 119/67 97 Room Air 98.8 Intake and Output 03/10/18 03/11/18 19:00 07:00 Intake Total 1770 ml 1950 ml Balance 1770 ml 1950 ml Intake Oral 120 ml 300 ml IV Total 1650 ml 1650 ml # Voids 2 3 Laboratory Tests 03/11/18 06:54: White Blood Count 12.4H, Red Blood Count 4.32, Hemoglobin 12.9, Hematocrit 38.3 , Mean Corpuscular Volume 89, Mean Corpuscular Hemoglobin 29.9, Mean Corpuscular Hemoglobin Concent 33.8, Red Cell Distribution Width 12.5, Platelet Count 173, Mean Platelet Volume 5.4L, Neutrophils (%) (Auto) , Lymphocytes (%) ( Auto) , Monocytes (%) (Auto) , Eosinophils (%) (Auto) , Basophils (%) (Auto) , Differential Total Cells Counted 100, Neutrophils % (Manual) 87H, Lymphocytes % (Manual) 8L, Monocytes % (Manual) 3, Eosinophils % (Manual) 1, Basophils % ( Manual) 0, Band Neutrophils 1, Platelet Estimate Adequate, Platelet Morphology Normal, Red Blood Cell Morphology Normal, Sodium Level 136, Potassium Level 3.3L , Chloride Level 103, Carbon Dioxide Level 28, Anion Gap 5, Blood Urea Nitrogen 7, Creatinine 0.7, Estimat Glomerular Filtration Rate , Glucose Level 141H, Calcium Level 8.3L, Total Bilirubin 0.4, Aspartate Amino Transf (AST/SGOT) 18, Alanine Aminotransferase (ALT/SGPT) 40, Alkaline Phosphatase 71, Total Protein 5.9L, Albumin 2.3L, Globulin 3.6, Albumin/Globulin Ratio 0.6L, Triglycerides Level 80, Cholesterol Level 160, LDL Cholesterol 72, HDL Cholesterol 82H, Cholesterol/HDL Ratio 2.0L, Lipase 115 Height (Feet): 5 Height (Inches): 6.00 Weight (Pounds): 146 General Appearance: no apparent distress, alert EENT: PERRL/EOMI, normal ENT inspection Neck: non-tender, normal alignment, supple Cardiovascular: normal peripheral pulses, normal rate, regular rhythm Respiratory/Chest: chest wall non-tender, lungs clear, normal breath sounds Abdomen: normal bowel sounds, soft, tender Extremities: normal range of motion, non-tender Neurologic: alining inspector II-XII grossly normal, no motor/sensory deficits, alert, oriented x 3 Skin: normal pigmentation, warm/dry Opal Eddy NP Mar 11, 2018 17:59
[2018-03-11 20:00] VITALS: BP 146/75
[2018-03-12] VITALS: BP 140/69
[2018-03-12] MEDS: D5NS 1,000 ML IV SCH ×2 (02:50→13:04)
[2018-03-12 04:00] VITALS: BP 111/56
[2018-03-12] MEDS: Morphine Sulfate 4mg/ml Inj IVP PRN (05:42)
[2018-03-12 06:43] LABS: HEMATOCRIT 38.4 % (37.0-47.0); HEMOGLOBIN 13.1 G/DL (12.0-16.0); MEAN CORPUSCULAR VOLUME 89 FL (80-99); PLATELET COUNT 204 K/UL (150-450); RED BLOOD COUNT 4.33 M/UL (4.20-5.40); RED CELL DISTRIBUTION WIDTH 12.5 % (11.6-14.8); WHITE BLOOD COUNT 10.9 K/UL (4.8-10.8)
[2018-03-12 07:14] LABS: ALANINE AMINOTRANSFERASE 34 U/L (12-78); ALBUMIN 2.3 G/DL (3.4-5.0); ALBUMIN/GLOBULIN RATIO 0.6 (1.0-2.7); ALKALINE PHOSPHATASE 83 U/L (46-116); ANION GAP 4 mmol/L (5-15); ASPARTATE AMINO TRANSFERASE 15 U/L (15-37); BILIRUBIN,TOTAL 0.5 MG/DL (0.2-1.0); BLOOD UREA NITROGEN 6 mg/dL (7-18); CARBON DIOXIDE 30 MMOL/L (21-32); CHLORIDE 102 MMOL/L (98-107); CREATININE 0.7 MG/DL (0.55-1.30); POTASSIUM 3.5 MMOL/L (3.5-5.1); SODIUM 136 MMOL/L (136-145)
[2018-03-12 08:00] VITALS: BP 135/71
[2018-03-12] MEDS: Pantoprazole Inj IVP SCH (09:52)
[2018-03-12] MEDS: Morphine Sulfate 2mg/ml Inj IVP PRN ×2 (11:13→16:02)
[2018-03-12 11:51] VITALS: BP 139/67
--- NOTE | 2018-03-12 12:40 | Discharge Summary ---
Discharge Summary Hospital Course Date of Admission Mar 09, 2018 at 17:54 Date of Discharge March 12, 2018 Admitting Diagnosis pancreatitis, nonsmall cell cancer TONYA Jon is a 72 year old female who was admitted on Mar 09, 2018 at 17:54 for Pancreatitis,Nonsmall Cell Cancer This is a 72-year-old female with a past medical history of pancreatitis, brain tumor, and small cell carcinoma of the lung, who presents from home due to increasing left upper abdominal pain. The patient reports having the pain for approximately two days, which has started to worsen. She states she had nausea without any vomiting or fevers. She does have a history of prior gallstones as well. The patient presented to the emergency department for further evaluation and treatment. Upon arrival, the patient had a CT done, which showed edema in the upper abdomen, pancreatitis possible, but based on the patient's brain tumor in the past as well as small cell cancer, the patient would like to transfer back to [facility]. Consultations General surgery Procedures None Hospital Course Patient was admitted and seen by surgery. Patient was NPO and continued on IV fluids. Patient's diet was slowly advanced to CLD but continued to have nausea and vomiting. Patient's abdominal pain has improved throughout hospital course. TG was normal at 80. Leukocytosis resolved. Lipase trended down from 1700 to 115. Patient was therefore hemodynamically stable for transfer to [facility] for further management. Discharge Medications Changed Medications: Dextrose/Sod Chloride (Dextrose 5%-0.9% NaCl IV Soln) 1,000 Ml Iv.soln 1000 ML IV DAILY, BAG (Medication details modified) Continued Medications: Acetaminophen* (Acetaminophen 325MG Tablet*) 325 Mg Tablet 650 MG RECTAL Q4HR PRN for Fever/Headache/Mild Pain, TAB Ascorbic Acid* (Vitamin C*) 250 Mg Tablet 250 MG ORAL DAILY, #30 TAB 0 Refills Cholecalciferol (Vitamin D3)* (Vitamin D*) 1,000 Unit Tablet Unknown Dose ORAL DAILY, #30 TAB Cranberry Extract (Cranberry) 200 Mg Capsule Unknown Dose PO DAILY, CAP Dexamethasone (Dexamethasone) 2 Mg Tablet 2 MG ORAL BID, TAB Magnesium Oxide (Magnesium Oxide) 250 Mg Tablet Unknown Dose PO DAILY, TAB Morphine Sulfate (Morphine Sulfate) 4 Mg/1 Ml Syringe 4 MG IVPB Q3HR PRN for Severe Pain (Pain Scale 7-10), EA Morphine Sulfate* (Morphine Sulfate*) 2 Mg/1 Ml Cartridge 2 MG IV Q3HR PRN for Moderate Pain (Pain Scale 4-6), EA Pantoprazole* (Protonix*) 40 Mg Vial 40 MG IVP DAILY, VIAL Turmeric (Turmeric) 1 Gm Powder Unknown Dose MC DAILY, GM Vitamin B Complex (Vitamin B Complex) 1 Each Tablet 1 EACH PO DAILY for SUPPLEMENT, TAB Discontinued Medications: Iopamidol (Isovue-300) 100 Ml Infus..btl 100 ML IV PRN for Radiology Procedure Discharge Condition Upon Discharge: stable Discharge Disposition Patient was discharged to [facility]. Discharge Diagnoses: (1) Brain tumor (2) Small cell carcinoma of lung (3) Pancreatitis Opal Eddy NP Mar 12, 2018 12:40
--- NOTE | 2018-03-12 13:08 | General Progress Note ---
Assessment/Plan Status: stable Assessment/Plan 1. Stage IV lung cancer with history of recurrence, status post treatment. The patient with adenocarcinoma and small cell lung cancer. --> patient to be started on stereotactic radiation in addition to potential treatment in addition to potential chemotherapy. The patient has had carboplatin before. Continue to monitor at [facility]. -->. Follow up at [facility] with neurosurgeon. f/u with chemo as well 2. Leukocytosis secondary to severe infection or reactive process. --> fever resolved --> Cultures pending. --> wbc remains elevated 3. Hypocalcemia, likely secondary to dec in po intake, dec albim --> corrects with patients albumin --> monitor in case requires repletion 4. Hypoalbuminemia, potentially secondary to decreased p.o. intake. --> Correct the patient's albumin. 5. Left upper abdominal pain, The patient may need surgical consult. --> The patient with lipase greater than 1700, potentially pancreatitis --> on IV pain medications. 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 -->. Follow up at [facility] with neurosurgeon. Subjective Date patient seen: Mar 12, 2018 ROS Limited/Unobtainable: Yes Allergies: Coded Allergies: No Known Allergies (Unverified , 03/09/18) All Systems: reviewed and negative except above Subjective No acute events. Pt is stable and being transferred to [facility]. Vitals are stable. Objective Last 24 Hour Vital Signs Date Time Temp Pulse Resp B/P (MAP) Pulse Ox O2 Delivery O2 Flow Rate FiO2 03/12/18 11:51 98.2 80 18 139/67 98 98.2 03/12/18 08:00 97.5 76 18 135/71 97 97.5 03/12/18 04:00 98.5 77 17 111/56 98 Room Air 98.5 03/12/18 00:00 98.3 81 19 140/69 98 Room Air 98.3 03/11/18 20:00 98.7 87 20 146/75 97 Room Air 98.7 03/11/18 19:00 97.8 03/11/18 18:30 97.8 03/11/18 16:00 97.8 89 19 145/71 97 Room Air 97.8 03/11/18 15:32 97.7 03/11/18 15:02 97.7 Intake and Output 03/11/18 03/12/18 19:00 07:00 # Voids 3 2 Laboratory Tests 03/12/18 05:35: White Blood Count 10.9H, Red Blood Count 4.33, Hemoglobin 13.1, Hematocrit 38.4 , Mean Corpuscular Volume 89, Mean Corpuscular Hemoglobin 30.2, Mean Corpuscular Hemoglobin Concent 34.0, Red Cell Distribution Width 12.5, Platelet Count 204, Mean Platelet Volume 6.0L, Neutrophils (%) (Auto) , Lymphocytes (%) ( Auto) , Monocytes (%) (Auto) , Eosinophils (%) (Auto) , Basophils (%) (Auto) , Differential Total Cells Counted 100, Neutrophils % (Manual) 85H, Lymphocytes % (Manual) 7L, Monocytes % (Manual) 5, Eosinophils % (Manual) 3, Basophils % ( Manual) 0, Band Neutrophils 0, Platelet Estimate Adequate, Platelet Morphology Normal, Red Blood Cell Morphology Normal, Sodium Level 136, Potassium Level 3.5 , Chloride Level 102, Carbon Dioxide Level 30, Anion Gap 4L, Blood Urea Nitrogen 6L, Creatinine 0.7, Estimat Glomerular Filtration Rate , Glucose Level 129H, Calcium Level 9.0, Total Bilirubin 0.5, Aspartate Amino Transf (AST/SGOT) 15, Alanine Aminotransferase (ALT/SGPT) 34, Alkaline Phosphatase 83, Total Protein 6.3L, Albumin 2.3L, Globulin 4.0, Albumin/Globulin Ratio 0.6L Height (Feet): 5 Height (Inches): 6.00 Weight (Pounds): 146 General Appearance: no apparent distress EENT: PERRL/EOMI Neck: normal alignment Cardiovascular: normal peripheral pulses Respiratory/Chest: no respiratory distress Abdomen: soft Hawk Justice MD Mar 12, 2018 13:08
--- NOTE | 2018-03-12 15:15 | General Surgery Progress Note ---
General Surgery-Progress Note Subjective Symptoms: improved Additional Comments no acute events. resting comfortable. Objective Last 24 Hour Vital Signs Date Time Temp Pulse Resp B/P (MAP) Pulse Ox O2 Delivery O2 Flow Rate FiO2 03/12/18 11:51 98.2 80 18 139/67 98 98.2 03/12/18 08:00 97.5 76 18 135/71 97 97.5 03/12/18 04:00 98.5 77 17 111/56 98 Room Air 98.5 03/12/18 00:00 98.3 81 19 140/69 98 Room Air 98.3 03/11/18 20:00 98.7 87 20 146/75 97 Room Air 98.7 03/11/18 19:00 97.8 03/11/18 18:30 97.8 03/11/18 16:00 97.8 89 19 145/71 97 Room Air 97.8 03/11/18 15:32 97.7 I&O Intake and Output 03/11/18 03/12/18 19:00 07:00 # Voids 3 2 Cardiovascular: RSR Respiratory: clear Abdomen: soft, flat, non-tender, present bowel sounds Extremities: no cyanosis Laboratory Tests Test 03/12/18 05:35 White Blood Count 10.9 K/UL (4.8-10.8) H Red Blood Count 4.33 M/UL (4.20-5.40) Hemoglobin 13.1 G/DL (12.0-16.0) Hematocrit 38.4 % (37.0-47.0) Mean Corpuscular Volume 89 FL (80-99) Mean Corpuscular Hemoglobin 30.2 PG (27.0-31.0) Mean Corpuscular Hemoglobin Concent 34.0 G/DL (32.0-36.0) Red Cell Distribution Width 12.5 % (11.6-14.8) Platelet Count 204 K/UL (150-450) Mean Platelet Volume 6.0 FL (6.5-10.1) L Neutrophils (%) (Auto) % (45.0-75.0) Lymphocytes (%) (Auto) % (20.0-45.0) Monocytes (%) (Auto) % (1.0-10.0) Eosinophils (%) (Auto) % (0.0-3.0) Basophils (%) (Auto) % (0.0-2.0) Differential Total Cells Counted 100 Neutrophils % (Manual) 85 % (45-75) H Lymphocytes % (Manual) 7 % (20-45) L Monocytes % (Manual) 5 % (1-10) Eosinophils % (Manual) 3 % (0-3) Basophils % (Manual) 0 % (0-2) Band Neutrophils 0 % (0-8) Platelet Estimate Adequate Platelet Morphology Normal Red Blood Cell Morphology Normal Sodium Level 136 MMOL/L (136-145) Potassium Level 3.5 MMOL/L (3.5-5.1) Chloride Level 102 MMOL/L (98-107) Carbon Dioxide Level 30 MMOL/L (21-32) Anion Gap 4 mmol/L (5-15) L Blood Urea Nitrogen 6 mg/dL (7-18) L Creatinine 0.7 MG/DL (0.55-1.30) Estimat Glomerular Filtration Rate mL/min (>60) Glucose Level 129 MG/DL (74-106) H Calcium Level 9.0 MG/DL (8.5-10.1) Total Bilirubin 0.5 MG/DL (0.2-1.0) Aspartate Amino Transf (AST/SGOT) 15 U/L (15-37) Alanine Aminotransferase (ALT/SGPT) 34 U/L (12-78) Alkaline Phosphatase 83 U/L (46-116) Total Protein 6.3 G/DL (6.4-8.2) L Albumin 2.3 G/DL (3.4-5.0) L Globulin 4.0 g/dL Albumin/Globulin Ratio 0.6 (1.0-2.7) L Plan Problems: (1) Pancreatitis Assessment & Plan: 72F with likely gallstone pancreatitis. afebrile, HD stable , leukocytosis 13k, lipase >1000. exam as above. Ct as noted. today still with epigastric radiating to back discomfort. no n/v/f/c. leukocytosis mildly improved. lipase normal. lfts okay. lipids okay. -diet as tolerated -trend labs -conservative medical management of pancreatitis. -recommend cholecystectomy given episode of gallstone pancreatitis. patient with brain tumor and lung cancer. would like to discuss with her other MD's first. states she will pursue as outpatient. -patient states she wants transfer to [facility] soon. thank you for this consultation. will follow with recs. Leonidas Lynch Mar 12, 2018 15:15
[2018-03-12 15:47] VITALS: BP 132/76
== END 2018-03-12 18:13 | disposition short-term general hospital (02) | DRG 439 ==
LOC: EMR 16:00 → 4W 17:54 → EDBEDREQ 18:44
DX: K85.10 Biliary acute pancreatitis without necrosis or infection (principal); C34.90 Malignant neoplasm of unspecified part of unspecified bronchus or lung; C79.31 Secondary malignant neoplasm of brain; K80.20 Calculus of gallbladder without cholecystitis without obstruction; Z92.3 Personal history of irradiation; E83.51 Hypocalcemia; E86.0 Dehydration; E88.09 Other disorders of plasma-protein metabolism, not elsewhere classified; D49.0 Neoplasm of unspecified behavior of digestive system; Z66 Do not resuscitate
CPT/HCPCS: 36415; 74177; 80053; 80061; 81003; 83690; 84484; 85007; 85025; 85610; 85730; 93005; 99285